=== PATIENT | female | born 1965 | race Caucasian/White ===

== ENCOUNTER 2020-07-07 07:25 | Day surgery (SDC) | payer OTHER ==
--- NOTE | 2020-06-29 15:33 | HP ---
DATE OF SURGERY: 07/07/2020 HISTORY OF PRESENT ILLNESS: The patient presented to the office initially with need for breast biopsy. Incidentally, she was also complaining for right upper quadrant pain. She stated this radiates to the mid abdomen. There is also some diarrhea and nausea associated with this. She ate cereal earlier and this gave her some bad diarrhea and pain. She states she has nausea daily. She also reports that sometimes even water makes her nauseous. She had ultrasound showing she did have some cholelithiasis. She states that this really flared up and got worse a couple of months ago. PAST MEDICAL HISTORY: Diabetes, high blood pressure, hypothyroidism, reflux, hyperlipidemia. PAST SURGICAL HISTORY: Heart cath. Partial thyroidectomy. ALLERGIES: AMOXICILLIN. CODEINE. MEDICATIONS: Aspirin, Metformin, Vascepa, calcium, levothyroxine, loratadine, metoprolol, hydrochlorothiazide, omeprazole, Lisinopril, lovastatin, Jardiance, Humalog. FAMILY HISTORY: Heart disease. Hypertension. Diabetes. Cancer unspecified. SOCIAL HISTORY: Negative. REVIEW OF SYSTEMS: CONSTITUTIONAL: Denies fever or chills. CHEST: Denies shortness of breath. CVS: Denies chest pain. ABDOMEN: Reports right upper quadrant pain, nausea, vomiting, diarrhea. Denies constipation or rectal bleeding. INTEGUMENTARY: Negative. PHYSICAL EXAMINATION: GENERAL: No acute distress. CHEST: Nonlabored. No shortness of breath. CVS: Regular rate and rhythm. ABDOMEN: Soft, tender right upper quadrant. EXTREMITIES: No edema. NEUROLOGIC: Alert. PSYCHIATRIC: Appropriate. IMPRESSION: Symptomatic cholelithiasis. PLAN: Laparoscopic cholecystectomy with Dr. Savage Thurman. As dictated by Shira Rosado NP.
[~2020-07-07 07:25] MED LIST: Lactated Ringers 1,000 ML IV ONE; Sensorcaine 0.25% 10 ML ONE
[2020-07-07] MEDS ORDERED: Levofloxacin 500MG/100ML D5W 500 MG/100 ML BAG IV SCH (08:15)
[2020-07-07] MEDS ORDERED: Lactated Ringers 1,000 ML IV ONE ×2 (08:18→11:54)
[2020-07-07] MEDS ORDERED: CLINDAMYCIN-D5W 900 MG/50 ML*** 900 MG/50 ML BAG IV ONE (08:18)
[2020-07-07] MEDS ORDERED: Levofloxacin 500MG/100ML D5W 500 MG/100 ML BAG IV ONE (08:18)
[2020-07-07] MEDS ORDERED: Lactated Ringers 1,000 ML IV SCH (08:30)
[2020-07-07] MEDS ORDERED: CLINDAMYCIN-D5W 900 MG/50 ML*** 900 MG/50 ML BAG IV SCH (08:30)
[2020-07-07 10:05] LABS: ANION GAP 12.7 MEQ/L (5-15); BLOOD UREA NITROGEN 20 mg/dL (7-17); CHLORIDE 102 mmol/L (98-107); Calcium 9.4 mg/dL (8.4-10.2); Carbon Dioxide 27 mmol/L (22-30); Creatinine 1 0.76 mg/dL (0.52-1.04); EST GLOMERULAR FILTRATION RATE > 60.0 ML/MIN; Glucose 206 mg/dL (74-106); SODIUM 138 mmol/L (137-145)
[2020-07-07] MEDS ORDERED: DIPRIVAN 200 MG/20 ML IV ONE (10:19)
[2020-07-07] MEDS ORDERED: Zemuron 100 MG/10 ML ONE (10:19)
[2020-07-07] MEDS ORDERED: Quelicin Fliptop 200 MG/10 ML ONE (10:19)
[2020-07-07] MEDS ORDERED: SUBLIMAZE 250 MCG/5 ML ONE (10:19)
[2020-07-07] MEDS ORDERED: Versed 2 MG/2 ML Injection ONE (10:19)
[2020-07-07] MEDS ORDERED: BRIDION 200MG/2ML IV ONE (11:11)
[2020-07-07] MEDS ORDERED: Zofran 4 MG/2 ML VIAL ONE (11:11)
[2020-07-07] MEDS ORDERED: Compazine 10 MG/2 ML ONE (11:44)
[2020-07-07] MEDS ORDERED: MORPHINE SULFATE 10 MG/ML ONE (11:51)
[2020-07-07] MEDS ORDERED: SUBLIMAZE 100 MCG/2 ML ONE (11:52)
--- NOTE | 2020-07-07 12:00 | OP ---
SURGERY DATE/TIME: 07/07/2020 1017 PREOPERATIVE DIAGNOSIS: Symptomatic cholelithiasis. POSTOPERATIVE DIAGNOSIS: Symptomatic cholelithiasis. PROCEDURE: Laparoscopic cholecystectomy. SURGEON: Dr. Savage Thurman. ANESTHESIA: General endotracheal tube. ESTIMATED BLOOD LOSS: None. COMPLICATIONS: None. CONDITION: Stable. INDICATIONS: A patient with upper abdominal pain, ultrasound positive. Seen and examined. Procedure discussed in detail and wished to proceed. DESCRIPTION OF PROCEDURE AND FINDINGS: Taken to surgery. General anesthetic, routine prep and drape. Veress needle inserted. Left upper quadrant insufflating pressure 14. Four - 5's initially. Good visualization. Gallbladder was intrahepatic and long became quite medial but with care and patience the medial aspects were dissected. The infundibulum traced down to the cystic duct. The cystic duct was so broad. There was an impacted stone in the infundibulum about 3 mm. Cystic artery, cystic duct, cystic vein was taken and triply clipped. At this time there was clearly a singular structure coming off absolutely right angle to the presumed common bile duct area. An inch of the cephalad tissue had been cleared. There was nothing returning back to the liver. We were clearly up the gallbladder about an inch almost 1.5 inch area had been cleared. At this time it was felt prudent to take the infundibulum and cystic duct area with stapler, 2.5 vascular cartridge was placed and clamped down. The impacted stone had been teased upwards. It was fired. Staple line looked excellent proximally and distally. The upper inch of the gallbladder was dissected. It was pulled out the left upper 12 port site that had been placed with a stapler. It was inspected. It was clearly singular. A small piece of Surgicel placed in the hilum. Field was dry. Hole closure device used at the 12 site with 0 Vicryl. Skin closed with 4-0 Vicryl and Steri-Strips. The patient tolerated the procedure satisfactorily.
[2020-07-07 13:00] VITALS: O2SAT 92
[2020-07-07 13:17] VITALS: PULSE 74
[2020-07-07 13:24] VITALS: BP 117/71
== END 2020-07-07 13:28 | disposition home or self-care (01) ==
LOC: SDC 07:25
PROVIDERS: ATTEND Surgery
DX: K80.20 Calculus of gallbladder without cholecystitis without obstruction (principal); E11.9 Type 2 diabetes mellitus without complications; E78.5 Hyperlipidemia, unspecified; E03.9 Hypothyroidism, unspecified; I10 Essential (primary) hypertension; Z79.899 Other long term (current) drug therapy
CPT/HCPCS: 36415; 80048; 82103; 82104; J0330; J1956; J2250; J2270; J2405; J2704; J3010

== ENCOUNTER 2020-08-18 09:09 | Day surgery (SDC) | payer OTHER ==
--- NOTE | 2020-08-11 08:57 | HP ---
DATE OF SURGERY: 08/18/2020 HISTORY OF PRESENT ILLNESS: The patient presented with right breast biopsy showing that she had atypical ductal hyperplasia per prior biopsy. The patient denies any symptoms per the breast, this is the right breast. She states that she had a cousin with breast cancer and grandmother with ovarian cancer. PAST MEDICAL HISTORY: Diabetes, hypothyroidism, hypertension, reflux, hyperlipidemia. PAST SURGICAL HISTORY: Heart cath. Thyroidectomy. ALLERGIES: AMOXICILLIN. CODEINE. MEDICATIONS: Metformin, Vascepa, calcium, triamcinolone, levothyroxine, loratadine, metoprolol, hydrochlorothiazide, omeprazole, lisinopril, lovastatin, Jardiance, Humalog, aspirin. FAMILY HISTORY: Heart disease, blood pressure, diabetes. SOCIAL HISTORY: Negative. REVIEW OF SYSTEMS: CONSTITUTIONAL: Denies fever or chills. CHEST: Denies shortness of breath. CVS: Denies chest pain. ABDOMEN: Denies abdominal pain, nausea, vomiting, diarrhea, constipation or rectal bleeding. INTEGUMENTARY: Negative. PHYSICAL EXAMINATION: GENERAL: No acute distress. CHEST: Nonlabored. No shortness of breath. CVS: Regular rate and rhythm. ABDOMEN: Soft, nontender to palpation. EXTREMITIES: No edema. NEUROLOGIC: Alert. PSYCHIATRIC: Appropriate. IMPRESSION: Atypical ductal hyperplasia of the right breast. PLAN: Right breast lumpectomy prior needle placement with Dr. Savage Thurman. As dictated by Shira Rosado NP.
[2020-08-18] MEDS ORDERED: Lactated Ringers 1,000 ML IV ONE (09:38)
[2020-08-18] MEDS ORDERED: Levofloxacin 500MG/100ML D5W 500 MG/100 ML BAG IV ONE (09:38)
[2020-08-18] MEDS ORDERED: Levofloxacin 500MG/100ML D5W 500 MG/100 ML BAG IV SCH (10:00)
[2020-08-18] MEDS ORDERED: Lactated Ringers 1,000 ML IV SCH (10:00)
[2020-08-18] MEDS ORDERED: Versed 2 MG/2 ML Injection ONE (14:37)
[2020-08-18] MEDS ORDERED: SUBLIMAZE 250 MCG/5 ML ONE (14:37)
[2020-08-18] MEDS ORDERED: DIPRIVAN 200 MG/20 ML IV ONE (14:37)
[2020-08-18] MEDS ORDERED: Xylocaine-Mpf 2% 5 Ml Vial ONE (14:38)
[2020-08-18] MEDS ORDERED: Sodium Chloride 0.9% 1000 ML 1,000 ML ONE (15:00)
--- NOTE | 2020-08-18 15:29 | XRAY ---
Indication: Needle wire localization for biopsy proven 9:00 right breast atypical ductal hyperplasia with atypical ducts. Informed consent obtained. Right breast was compressed in the lateral medial plane using a alphanumeric grid paddle. Skin was cleansed with Betadine swabs. Two 20-gauge emereiatas needles were then percutaneously inserted bracketing the microcalcifications and mammotome clip in question. Orthogonal right mammogram was obtained confirming overall good needle placement. Ultimately a hooked ari wire was then inserted into both needles with the outer needle removed. Repeat orthogonal digital mammograms obtained confirms overall good needle placement. Wires were secured and overlying bandage material applied. Patient was then taken to surgery. Impression: Technically successful needle wire localization 9:00 mammotome clip/microcalcifications. No immediate complications.
[2020-08-18] MEDS ORDERED: Zofran 4 MG/2 ML VIAL ONE (16:13)
[2020-08-18 17:09] VITALS: BP 139/83; PULSE 84; O2SAT 96
--- NOTE | 2020-08-19 07:55 | OP ---
SURGERY DATE/TIME: 08/18/2020 1431 PREOPERATIVE DIAGNOSIS: Right breast mammographic concern. POSTOPERATIVE DIAGNOSIS: Right breast mammographic concern. PROCEDURE: Right bracketed prior needle placement lumpectomy. SURGEON: Savage Thurman M.D. ANESTHESIA: General. COMPLICATIONS: None. CONDITION: Stable. INDICATION: A patient requiring biopsy. She has had bracketing in the radiology department. Atypical hyperplasia right breast requiring removal with mammographic and pathological findings. DESCRIPTION OF PROCEDURE: Brought to the operating room. The brackets were reviewed. The anticipated course was planned. Re-incision in between the two wires. Hemostasis obtained with electrocautery. The breast parenchyma in between the two wires was taken in a slightly oblong cylinder-type fashion. Hemostasis obtained with electrocautery. Specimen mammography confirmed the majority of the lesions in the previous clip site. Hemostasis satisfactory. No palpable residual abnormality. The re-incision was located about 8:00 in the right breast from lateral up on to the edge of the areola.
--- NOTE | 2020-08-19 09:25 | XRAY ---
Indication: Surgical specimen following needle wire localization. A single specimen radiograph demonstrates mammotome clip/biopsy site and the regional microcalcifications with intact ari wires. Findings were reported to the surgeon.
== END 2020-08-18 17:00 | disposition home or self-care (01) ==
LOC: SDC 09:09
PROVIDERS: ATTEND Surgery
DX: D05.91 Unspecified type of carcinoma in situ of right breast (principal); N62 Hypertrophy of breast; E11.9 Type 2 diabetes mellitus without complications; I10 Essential (primary) hypertension; E03.9 Hypothyroidism, unspecified; E78.5 Hyperlipidemia, unspecified; Z79.899 Other long term (current) drug therapy
CPT/HCPCS: 19281; 76098; 82947; 88307; J1956; J2250; J2405; J2704; J3010

== ENCOUNTER 2021-05-25 09:03 | Day surgery (SDC) | payer OTHER ==
--- NOTE | 2021-05-24 11:32 | HP ---
DATE OF SURGERY: 05/25/2021 HISTORY OF PRESENT ILLNESS: The patient presents for three year follow up colonoscopy. The patient had scope with Dr. Braydon richardson in 2018 and she had four colon polyps. She denies any GI signs or symptoms at this time. The patient reports an aunt with colon cancer. PAST MEDICAL HISTORY: Diabetes, hypertension, hyperlipidemia, reflux, hypothyroidism. PAST SURGICAL HISTORY: Cholecystectomy. Back surgery. Heart cath. Thyroidectomy. ALLERGIES: CODEINE. AMOXICILLIN. MEDICATIONS: CPAP, metformin, Vascepa, calcium, triamcinolone, levothyroxine, loratadine, metoprolol, hydrochlorothiazide, omeprazole, lisinopril, lovastatin, Jardiance, Humalog, aspirin. FAMILY HISTORY: Hypertension, diabetes, heart disease. Cancer unspecified. SOCIAL HISTORY: None. REVIEW OF SYSTEMS: CONSTITUTIONAL: Denies fever or chills. CHEST: Denies shortness of breath. CVS: Denies chest pain. ABDOMEN: Denies abdominal pain, nausea, vomiting, diarrhea, constipation or rectal bleeding. PHYSICAL EXAMINATION: GENERAL: No acute distress. CHEST: Nonlabored. No shortness of breath. CVS: Regular rate and rhythm. ABDOMEN: Soft, nontender. IMPRESSION: History of colon polyps PLAN: Colonoscopy with Dr. Savage Thurman. As dictated by Shira Rosado NP.
[2021-05-25] MEDS ORDERED: Lactated Ringers 1,000 ML IV SCH (09:30)
[2021-05-25] MEDS ORDERED: Lactated Ringers 1,000 ML IV ONE (09:39)
[2021-05-25] MEDS ORDERED: Xylocaine-Mpf 2% 5 Ml Vial ONE (11:04)
[2021-05-25] MEDS ORDERED: DIPRIVAN 200 MG/20 ML IV ONE ×2 (11:04→11:21)
[2021-05-25] MEDS ORDERED: SUBLIMAZE 100 MCG/2 ML ONE (11:04)
[2021-05-25 12:32] VITALS: BP 122/67; PULSE 62; O2SAT 97
--- NOTE | 2021-05-25 14:59 | OP ---
SURGERY DATE/TIME: 05/25/2021 1106 PREOPERATIVE DIAGNOSIS: Three year follow up of polyps. Last colonoscopy Dr. Bryson at [facility]. POSTOPERATIVE DIAGNOSES: 1) Today no polyps. 2) There was a piece of foreign body material in the cecum almost like a 1 inch wood splinter. It was mobile. I did have round edges. It did not seem to be a concern. It was present. It was right by the appendix. It was not in the appendiceal orifice. 3) Findings of redundant colon and fairly large diameter colon about 4 inches. 4) Anticipated follow up five years. 5) Prep score excellent. 6) Withdrawal time satisfactory. PROCEDURE: Colonoscopy complete to cecum. INSIDE PHONE SALES: Amanda Jackson, medical student III. SURGEON: Savage Thurman M.D. ANESTHESIA: MAC. COMPLICATIONS: None. CONDITION: Stable. INDICATION: Patient presents for follow up colonoscopy. DESCRIPTION OF PROCEDURE: Taken to endoscopy. Left lateral decubitus position. MAC sedation provided. Anal digital examination. Scope introduced. Scope advanced to the cecum. The colon was redundant and it was wide. The appendiceal orifice was normal. Ileocecal valve normal. There was a splinter-like piece in the cecum. I believe it was very heavy fiber almost like celery although it had a color almost of wood. It had a consistency of like bamboo. There was no significance. On circumferential withdrawal no lesions were noted. The patient tolerated the procedure satisfactorily. Follow up in five years.
== END 2021-05-25 12:40 | disposition home or self-care (01) ==
LOC: SDC 09:03
PROVIDERS: ATTEND Surgery
DX: Z09 Encounter for follow-up examination after completed treatment for conditions other than malignant neoplasm (principal); Z80.0 Family history of malignant neoplasm of digestive organs; Z86.010 Personal history of colon polyps; E11.9 Type 2 diabetes mellitus without complications; Z79.899 Other long term (current) drug therapy
CPT/HCPCS: 82947; J2704; J3010

== ENCOUNTER 2021-05-31 09:18 | Day surgery (SDC) | payer OTHER ==
[2021-05-31] MEDS ORDERED: Depo-Medrol 40 MG/ML IM ONE (09:19)
[2021-05-31] MEDS ORDERED: Sodium Chloride 0.9% 10 ML FLUSH Syringe IJ ONE (09:19)
[2021-05-31] MEDS ORDERED: DIPRIVAN 200 MG/20 ML IV ONE (11:22)
--- NOTE | 2021-05-31 12:58 | XRAY ---
Indication: Right L4-S1 transforaminal ATILIO. Intraoperative fluoroscopy provided for 52 seconds. 4 digital spot images submitted for interpretation demonstrates posterior needle tips projecting over the expected right L4 and L5 nerve roots. Small amount of contrast injected for needle tip placement. Correlate with intraoperative findings/report.
[2021-05-31] MEDS ORDERED: Lactated Ringers 1,000 ML IV ONE (13:35)
--- NOTE | 2021-05-31 14:00 | XRAY ---
52 seconds of fluoroscopy was used in surgery for a right L4-S1 transforaminal ATILIO.
== END 2021-05-31 10:57 | disposition home or self-care (01) ==
LOC: SDC-PAIN 09:18
PROVIDERS: ATTEND Psychiatry & Neurology Pain Medicine
DX: M54.16 Radiculopathy, lumbar region (principal); I10 Essential (primary) hypertension; E11.9 Type 2 diabetes mellitus without complications; Z79.899 Other long term (current) drug therapy
CPT/HCPCS: 64483; 64484; 72100; 77003; 82947; J1030; J2704; Q9966